=== PATIENT | male | born 1985 | race Caucasian/White ===

== ENCOUNTER → 2016-04-29 | Outpatient (CLI) | payer OTHER ==
[~2016-04-29] MED LIST: ADDERALL PO; ADDERALL XR20 MG PO; ALBUTEROL0.83 MG/ML INH; ALBUTEROL17 GM INH; AMITRYPTYLINE PO; AMOXICILLIN500 M1 PO; ANUCORT-HC25 MG/SUPP PR; BACTRIM DS TABL1 TA1 PO; BENZONATE PO; BRINTELLIX PO; BYSTOLIC PO; BYSTOLIC5 MG PO; CIPRO PO; DESYREL50 MG PO; DICLOFENAC PO; DIVALPROEX SOD500 M2 PO; EFFEXOR XR75 MG PO; FAMOTIDINE PO; FLEXERIL10 MG PO; FLONASE ALLERG9.9 ML; FLOVENT HFA10.6 G1 INH; FLOVENT HFA12 G2; GABAPENTIN300 MG PO; HYDROCHLOROTHIA25 MG PO; IBUPROFEN800 MG PO; KEFLEX500 MG PO; KLONOPIN1 MG PO; LEVAQUIN PO; LEXAPRO PO; LIPOFEN150 MG PO; LIVALO2 MG PO; LORTAB 5/500 TA1 TA2 PO; MAGNESIUM400 MG PO; MINOCYCLINE HCL50 MG PO; NAPROXEN PO; NAPROXEN500 M1 PO; NO MEDICATIONS; NORVASC PO; OXYCODONE-ACET1 EACH PO; PANTOPRAZOLE SO40 MG PO; PEN-VEE K PO; PEPCID AC20 M2 PO; PERCOCET 7.5/321 TAB PO; PERMETHRIN60 GM TOP; PHENERGAN PO; PHENERGAN25 M1 PO; PREDNISONE PO; PROTONIX PO; RIZATRIPTAN10 M2 PO; ROBAXIN PO; ROBAXIN500 MG PO; SEROQUEL PO; SERTRALINE HCL100 M1 PO; TEKTURNA150 MG PO; VIAGRA; VICODIN 5/500 T1 TAB PO; VOLTAREN50 MG PO; VOLTAREN75 MG PO; VYVANSE60 MG PO; WELLBUTRIN100 MG PO; XANAX1 MG PO; ZYRTEC PO
[2016-04-29 20:22] LABS: BASOPHIL% 0.5 % (0-2.5); EOSINOPHIL# 0.1 X10e3 (0-0.7); EOSINOPHIL% 1.5 % (0.0-7.0); HEMATOCRIT 44.9 % (38.0-50.0); LYMPHOCYTE# 2.6 X10e3 (1.0-3.5); LYMPHOCYTE% 30.7 % (17.0-45.0); MEAN CELL VOLUME 83.4 FL (83-96); MEAN CORPUSCULAR HEMOGLOBIN 27.9 PG (28-34); MEAN CORPUSCULAR HGB CONC 33.5 g/dL (30-36); MEAN PLATELET VOLUME 9.6 FL (6.5-11.5); MONOCYTE# 0.5 X10e3 (0-1.0); MONOCYTE% 6.2 % (3.0-12.0); NEUTROPHIL# 5.2 X10e3 (1.5-7.1); NEUTROPHIL% 61.1 % (40-75); PLATELET COUNT 230 X10e3 (140-420); RED BLOOD COUNT 5.38 X10e (3.90-5.60); RED CELL DISTRIBUTION WIDTH 14.2 % (11.0-15.5); WHITE BLOOD COUNT 8.5 X10e3 (4.0-10.5)
[2016-04-29 20:26] LABS: DIFF IND NO
[2016-04-29 20:33] LABS: ALBUMIN SERUM 4.6 g/dL (3.5-5.0); ALKALINE PHOSPHATASE 80 U/L (32-92); ALT (SGPT) 34 U/L (10-40); AST (SGOT) 25 U/L (10-42); BILIRUBIN,TOTAL 0.5 mg/dL (0.2-2.0); BLOOD UREA NITROGEN 17 mg/dL (9-23); BUN/CREATININE RATIO 15.45; CALCIUM SERUM 9.9 mg/dL (8.4-10.2); CARBON DIOXIDE 23 mmol/L (22-31); CHLORIDE 105 mmol/L (100-111); CREATININE SERUM 1.1 mg/dL (0.6-1.4); GLOM FILT RATE Estimated ABOVE60 mL/min (>60); GLUCOSE FASTING 112 mg/dL (70-110); POTASSIUM 3.7 mmol/L (3.5-5.1); PROTEIN TOTAL SERUM 7.8 g/dL (6.0-8.3); SODIUM 138 mmol/L (135-145)
[2016-04-29 20:45] LABS: THYROID STIMULATING HORMONE 1.44 uIU/ml (0.34-5.60)
[2016-04-29 20:49] LABS: FREE T3 3.4 pg/mL (2.5-3.9)
[2016-04-29 20:51] LABS: FREE THYROXIN (T4) 0.7 ng/dL (0.58-1.64)
[2016-05-02 21:44] LABS: ANA SCREEN Negative (Negative)
== END | disposition home or self-care (01) ==
LOC: CLAB 19:33
PROVIDERS: Psychiatry & Neurology Neurology
DX: G43.909 Migraine, unspecified, not intractable, without status migrainosus (principal)
CPT/HCPCS: 36415; 80053; 82607; 83036; 83921; 84439; 84443; 84481; 85025; 85652; 86038; 86039; 86430; 86592; 86618

== ENCOUNTER → 2016-05-16 | Outpatient (CLI) | payer OTHER ==
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
== END | disposition home or self-care (01) ==
LOC: CMRI 06:59
DX: G43.909 Migraine, unspecified, not intractable, without status migrainosus (principal); G93.0 Cerebral cysts; R90.82 White matter disease, unspecified; J32.9 Chronic sinusitis, unspecified
CPT/HCPCS: 70553; A9577